=== PATIENT | female | born 1990 | race Caucasian/White ===

== ENCOUNTER 2019-07-28 20:00 | Emergency (ER) | payer SELFPAY ==
[2019-07-28] MEDS ORDERED: Ondansetron 4 MG Tab.DIS PO ONE (21:48)
--- NOTE | 2019-07-28 21:49 | EDM.PDOC ---
ED HPI GENERAL MEDICAL PROBLEM - General Chief Complaint: CLERICAL COORDINATOR Problem Stated Complaint: VOMITING Time Seen by Provider: 07/28/19 21:05 Source of Information: Reports: Patient, Other (Friend, daughter) History Limitations: Reports: No Limitations - History of Present Illness INITIAL COMMENTS - FREE TEXT/NARRATIVE: Ms. Rob is a pleasant 29-year-old woman with no significant past medical history, who states that she developed nausea and vomiting last week, as well as urinary frequency, although no dysuria. She took a home test today , and it was positive. She has not had any vaginal bleeding or pelvic cramps. She is concerned that she might have a UTI, and despite the positive home test, she would like us to recheck it, as she is not sure. LMP first week of June. This would be her 5th . Para 4. The patient does not have a PCP or Umbrella Cutter. 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 ED EXAM - Physical Exam Exam: See Below Exam Limited By: No Limitations General Appearance: Alert, WD/WN, No Apparent Distress Eye Exam: Bilateral Eye: EOMI, Normal Inspection Ears: Normal External Exam, Hearing Grossly Normal Nose: Normal Inspection Throat/Mouth: Normal Inspection, Normal Lips, Normal Voice, No Airway Compromise Head: Atraumatic, Normocephalic Neck: Normal Inspection, Full Range of Motion Respiratory/Chest: No Respiratory Distress, Lungs Clear, Normal Breath Sounds, No Accessory Muscle Use Cardiovascular: Normal Peripheral Pulses, Regular Rate, Rhythm, No Gallop, No JVD, No Murmur, No Rub GI/Abdominal Exam: Normal Bowel Sounds, Soft, Non-Tender (including suprapubically), No Organomegaly, No Distention, No Abnormal Bruit, No Mass Rectal Exam: Deferred Back Exam: Normal Inspection, Full Range of Motion. No: CVA Tenderness (L), CVA Tenderness (R) Extremities: Normal Inspection, Normal Range of Motion, No Pedal Edema, Normal Capillary Refill Neurological: Alert, Oriented, Normal Cognition, No Motor/Sensory Deficits Psychiatric: Normal Affect Skin Exam: Warm, Dry, Intact, Normal Color, No Rash Course - Vital Signs Last Recorded V/S: Last Vital Signs Temp 36.9 C 07/28/19 20:15 Pulse 88 07/28/19 20:15 Resp 18 07/28/19 20:15 BP 124/88 07/28/19 20:15 Pulse Ox 100 07/28/19 20:15 - Orders/Labs/Meds Orders: Active Orders 24 hr Category Date Time Status CULTURE URINE [RM] Stat Lab 07/28/19 21:50 Received Labs: Laboratory Tests 07/28/19 07/28/19 Range/Units 21:50 21:50 Urine Color Light yellow (Yellow) Urine Appearance Clear (Clear) Urine pH 6.5 (5.0-8.0) Ur Specific [place] > or = 1.030 (1.005-1.030) Urine Protein Negative (Negative) Urine Glucose (UA) Negative (Negative) Urine Ketones Negative (Negative) Urine Occult Blood Negative (Negative) Urine Nitrite Negative (Negative) Urine Bilirubin Negative (Negative) Urine Urobilinogen 0.2 (0.2-1.0) Ur Leukocyte Esterase Trace H (Negative) Urine RBC 5-10 H (0-5) /hpf Urine WBC 20-30 H (0-5) /hpf Ur Squamous Epith Cells 0-5 (0-5) /hpf Urine Bacteria Few (FEW) /hpf Urine Mucus Moderate H (FEW) /hpf Urine HCG, Qual Positive (NEGATIVE) Meds: Medications Discontinued Medications Generic Name Dose Route Start Last Admin Trade Name Freq PRN Reason Stop Dose Admin Nitrofurantoin Macrocrystals 100 mg 07/28/19 22:47 07/28/19 23:13 Macrobid PO 07/28/19 22:48 100 mg ONETIME STA Administration Ondansetron HCl 4 mg 07/28/19 21:48 07/28/19 21:51 Zofran Odt PO 07/28/19 21:49 4 mg ONETIME ONE Administration Prenat Multivit/[place]/Iron/Folic Ac 1 each 07/28/19 23:01 07/28/19 23:13 Plus Iron PO 07/28/19 23:02 Not Given ONETIME STA - Re-Assessments/Exams Free Text/Narrative Re-Assessment/Exam: 07/28/19 21:48 As per the HPI, the patient had a positive urine test earlier today, but she would like us to repeat it. In addition, she has been experiencing urinary frequency, although no dysuria. I have therefore ordered a urinalysis by clean catch and a repeat urine test. I also ordered some Zofran, with the intention of prescribing some more. I do not see the need for blood work or an ultrasound at this time. 07/28/19 22:46 The patient's urinalysis is remarkable for negative occult blood with 5-10 RBCs , trace leukocyte esterase with 20-30 WBCs, nitrite negative with few bacteria, and 0-5 squamous epithelial cells. This urinalysis is consistent with a UTI. I have ordered a urine culture, and will start the patient on nitrofurantoin. The patient's urine test is positive. 07/28/19 22:55 Test results discussed with the patient, her friend, and daughter. As above, we will start the patient on nitrofurantoin, and I will prescribe a five-day course , along with vitamins with folic acid, and Zofran. I will refer the patient to Dr. Stevenson for obstetric follow-up. I would like the patient to follow-up in Dr. Stevenson's office in 3 days, to check on her urine culture results. Departure - Departure Time of Disposition: 22:56 Disposition: Home, Self-Care 01 Condition: Good Clinical Impression: Cystitis, - Discharge Information *PRESCRIPTION DRUG MONITORING PROGRAM REVIEWED*: Not Applicable *COPY OF PRESCRIPTION DRUG MONITORING REPORT IN PATIENT JANEL: Not Applicable Prescriptions: Nitrofurantoin Monohyd/M-Cryst [Macrobid 100 mg Capsule] 1 cap PO Q12H #10 capsule Ondansetron [Zofran ODT] 1 tab PO Q8H PRN #10 tab.dis PRN Reason: Nausea/Vomiting Vit No.124/Iron/FA [ Vitamin Tablet] 1 tab PO DAILY #30 tablet Instructions: First Trimester of , [id number], Urinary Tract Infection, Adult Referrals: Erika Stevenson MD [Physician] - Forms: ED Department Discharge Additional Instructions: You were seen in the emergency room for nausea and vomiting since last week, having to urinate often, and having a positive home test today. Workup in the ER included a urinalysis and a urine test. The urinalysis found that you have a urinary tract infection, and your urine test returned positive. You have been started on the antibiotic nitrofurantoin (Macrobid). A prescription for Macrobid, along with prescriptions for vitamins and the anti-nausea medicine Zofran, have been sent to the [facility], located in the [employer] [place]. Take one tablet of nitrofurantoin every 12 hours, starting tomorrow morning, 07/29/2019, as prescribed. Finish the entire prescription unless told otherwise by a doctor. Take one vitamin every day, as prescribed. Dissolve one tablet of Zofran on your tongue up to every 8 hours, as needed for nausea/vomiting. Stay adequately hydrated. It does not really matter what fluid you drink. Follow-up with the CLERICAL COORDINATOR Dr. Erika Stevenson on Sunday morning, 08/01/2019, to check on your urine culture results, to make sure that you are on the correct antibiotic, and to establish obstetric care. If any other problems, please do not hesitate to return to the ER. - My Orders Last 24 Hours: My Active Orders 07/28/19 21:50 CULTURE URINE [RM] Stat - Assessment/Plan Last 24 Hours: My Active Orders 07/28/19 21:50 CULTURE URINE [RM] Stat
[2019-07-28] MEDS ORDERED: Nitrofurantoin Monohydrate/Macrocrystalline 100 MG Cap PO STA (22:47)
[2019-07-28] MEDS ORDERED: Prenatal Multivitamin with Calcium/Folic Acid/Iron Tab PO STA (23:01)
== END 2019-07-28 23:16 | disposition home or self-care (01) ==
LOC: JD.ED 20:00
DX: O23.11 Infections of bladder in pregnancy, first trimester (principal); Z3A.01 Less than 8 weeks gestation of pregnancy
CPT/HCPCS: 81001; 81025; 87086; 99284; A9270

== ENCOUNTER 2020-04-06 02:41 | Inpatient (IN) | payer MEDICAID ==
[~2020-04-06 02:41] MED LIST: Bupivacaine 0.25% 10 ML SDV ONE; ePHEDrine Sulfate/0.9% NaCl/Pf 25 MG/5 ML SYRINGE IV ONE
[2020-04-06] MEDS ORDERED: Cyclobenzaprine 10 MG Tab PO ONE (02:57)
[2020-04-06] MEDS ORDERED: Ondansetron 4 MG/2 ML SDV IVPUSH PRN (04:01)
[2020-04-06] MEDS ORDERED: Nalbuphine 10 MG/ML Syringe IVPUSH PRN (04:01)
[2020-04-06] MEDS ORDERED: Sodium Chloride 0.9% 10 ML Syringe FLUSH PRN (04:01)
[2020-04-06] MEDS ORDERED: Ampicillin 2 GM in Sodium Chloride 0.9% 100 ML IV ONE (04:01)
--- NOTE | 2020-04-06 04:01 | PCM.LDHP ---
L&D History of Present Illness - General Date of Service: 04/06/20 Admit Problem/Dx: Admission Diagnosis/Problem Admission Diagnosis/Problem Source of Information: Patient History Limitations: Reports: No Limitations - History of Present Illness Introduction:: Patient is a 29 y/o at 39 6/7 wks who presents for concerns of pubic bone pain. Started this AM. No associated contractions. No bleeding or LOF. Notes good FM. 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 LMP (Approximate): Endocrine/Metabolic History: Reports: Obesity/BMI 30+ - Infectious Disease History Infectious Disease History: Reports: Other (See Below) (Syphilis) - Past Surgical History Other Surgical History Comment: No past surgical history Social & Family History - Tobacco Use Smoking Status *Q: Never Smoker - Alcohol Use Alcohol Use History: No - Recreational Drug Use Recreational Drug Use: No - Living Situation & Occupation Living situation: Reports: Single, with Family (4 kids) Occupation: Unemployed H&P Review of Systems - Review of Systems: Review Of Systems: See Below General: Reports: No Symptoms Pulmonary: Reports: No Symptoms Cardiovascular: Reports: No Symptoms Gastrointestinal: Reports: Abdominal Pain (and pubic bone pain) Genitourinary: Reports: No Symptoms Musculoskeletal: Reports: No Symptoms Psychiatric: Reports: No Symptoms Neurological: Reports: No Symptoms L&D Exam - Exam Exam: See Below - OB Specific Movement: Active Heart Tones: Present Heart Tones per Min: 140 Heart Rate (FHR) Variability: Moderate (6-25 bmp) Presentation: Vertex - Hurtado Score Hurtado Score Cervix Position: Posterior Hurtado Score Consistency: Medium Hurtado Score Effacement: 51-70% Hurtado Score Dilation: 1-2 cm Hurtado Score Infant's Station: -3 Hurtado Score Total: 4 - Exam General: Alert, Oriented, Cooperative Lungs: Clear to Auscultation, Normal Respiratory Effort Cardiovascular: Regular Rate, Regular Rhythm GI/Abdominal Exam: Soft, Non-Tender Genitourinary: Normal external exam Extremities: Normal Inspection Skin: Warm, Dry, Intact - Patient Data Result Diagrams: 04/06/20 04:25 - Problem List (1) 39 weeks gestation of SNOMED Code(s): 71151301 ICD Code: Z3A.39 - 39 WEEKS GESTATION OF Status: Acute Current Visit: Yes (2) Syphilis affecting SNOMED Code(s): 003509746 ICD Code: O98.119 - SYPHILIS COMPLICATING , UNSPECIFIED TRIMESTER Status: Acute Current Visit: Yes Qualifiers: Trimester: third trimester Qualified Code(s): O98.113 - Syphilis complicating , third trimester (3) GBS (group B Streptococcus carrier), +RV culture, currently SNOMED Code(s): 5958748638373, 238670041, 9899819124744 ICD Code: O99.820 - STREPTOCOCCUS B CARRIER STATE COMPLICATING Status: Acute Current Visit: Yes Problem List Initiated/Reviewed/Updated: Yes Orders Last 24hrs: Active Orders 24 hr Category Date Time Status Non Stress Test [RC] PER UNIT ROUTINE Care 04/06/20 02:57 Active Vital Signs [RC] PER UNIT ROUTINE Care 04/06/20 02:57 Active Resuscitation Status Routine Resus Stat 04/06/20 02:57 Ordered Assessment/Plan Comment:: Patient initial tracing with few intermittent late decelerations. As patient due tomorrow and set for IOL tomorrow and now with late decelerations decision made to keep patient for IOL today. * Labs done * Syphilis first noted 12/08 with titer of 1: 128, has been dropping and most recent was on 03/03 and titer of 1:8. Last PCN dose was 12/26/19. Peds team to be made [place] * GBS positive, will start ampicillin * Pitocin and then AROM * Pain management per patient preference * Anticipate
[2020-04-06] MEDS ORDERED: Oxytocin/Lactated Ringers 10 UNIT/1,000 ML BAG IV SCH ×2 (04:15)
--- NOTE | 2020-04-06 05:57 | PCM.SN.2 ---
- Free Text/Narrative Note: Called for assistance with IV placement. Multiple unsuccessful attempts per nursing staff. Site cleansed with chloraprep, 1% lidocaine to skin, 20 gauge IV inserted in left hand with one attempt, good blood return, flushes well, transparent dressing applied. Patient tolerated IV start well. Kathleen Keller CRNA
[2020-04-06] MEDS: Lactated Ringers 1,000 ML IV SCH ×4 (06:06→12:30)
--- NOTE | 2020-04-06 09:59 | PCM.PNLD ---
Labor Progress Note - VS & Meds Vital Signs: Last Vital Signs Temp 36.7 C 04/06/20 02:57 Pulse 108 H 04/06/20 02:57 Resp 16 04/06/20 02:57 BP 100/59 L 04/06/20 02:57 Pulse Ox 99 04/06/20 02:57 Active Medications: Current Medications Ampicillin Sodium 1 gm/ Sodium (Chloride) 100 mls @ 200 mls/hr IV Q4H MITESH Lactated Ringer's (Ringers, Lactated) 1,000 mls @ 100 mls/hr IV ASDIRECTED MITESH Last Admin: 04/06/20 08:54 Dose: 100 mls/hr Oxytocin/Lactated Ringer's (Pitocin In Lr 10 Units/1,000 Ml) 10 unit in 1,000 mls @ 500 mls/hr IV .CONTINUOUS MITESH Oxytocin/Lactated Ringer's (Pitocin In Lr 10 Units/1,000 Ml) 10 unit in 1,000 mls @ 12 mls/hr IV TITRATE MITESH; Protocol Last Titration: 04/06/20 08:45 Dose: 4 munits/min, 24 mls/hr Nalbuphine HCl (Nubain) 10 mg IVPUSH Q2H PRN PRN Reason: Pain Ondansetron HCl (Zofran) 4 mg IVPUSH Q4H PRN PRN Reason: Nausea/Vomiting Sodium Chloride (Saline Flush) 10 ml FLUSH ASDIRECTED PRN PRN Reason: Keep Vein Open Discontinued Medications Cyclobenzaprine HCl (Flexeril) 10 mg PO ONETIME ONE Stop: 04/06/20 02:58 Last Admin: 04/06/20 03:40 Dose: 10 mg Ampicillin Sodium 2 gm/ Sodium (Chloride) 100 mls @ 200 mls/hr IV ONETIME ONE Stop: 04/06/20 04:30 Last Admin: 04/06/20 06:10 Dose: 200 mls/hr - Uterine Contractions Uterine Monitoring Mode: External [place] Contraction Intensity: Mild to Moderate Uterine Resting Tone: Soft - Monitoring Monitor Mode: External Ultrasound Heart Rate (FHR) Baseline: 145 Heart Rate (FHR) Variability: Minimal (0-5 bpm) (min-mod) Accelerations: Absent Decelerations: Late, Intermittent (<50% x 20 min) Strip Review: Category II - Vaginal Exam Dilation (cm): 3 Effacement (Percent): 75 Station: -2 Cervical Position: Posterior - Labor Progress (Free Text) Labor Progress: Doing well. Pitocin at 4. Having some late decelerations. Resolved with position change. AROM done with scant amount of clear fluid. Continue present management. Patient difficult to arouse per RN. UDS done and pending
[2020-04-06] MEDS ORDERED: fentaNYL 100 MCG/2 ML SDV EPIDUR PRN (10:37)
[2020-04-06] MEDS ORDERED: diphenhydrAMINE 50 MG/ML SDV IVPUSH PRN (10:37)
[2020-04-06] MEDS ORDERED: ePHEDrine 50 MG/ML SDV IVPUSH PRN (10:37)
[2020-04-06] MEDS ORDERED: Bupivacaine/fentaNYL/NS 100 ML Bag EPIDUR PRN (10:37)
--- NOTE | 2020-04-06 10:43 | PCM.PREANE ---
Preanesthetic Assessment - Procedure Proposed Procedure: monster - Anesthesia/Transfusion/Family Hx Anesthesia History: Prior Anesthesia Without Reaction Family History of Anesthesia Reaction: No Transfusion History: No Prior Transfusion(s) - Review of Systems General: No Symptoms Pulmonary: No Symptoms Cardiovascular: No Symptoms Gastrointestinal: No Symptoms Neurological: No Symptoms Other: Reports: None - Physical Assessment Vital Signs: Last Vital Signs Temp 98.1 F 04/06/20 02:57 Pulse 108 H 04/06/20 02:57 Resp 16 04/06/20 02:57 BP 100/59 L 04/06/20 02:57 Pulse Ox 99 04/06/20 02:57 Height: 5 ft 5 in Weight: 101.151 kg ASA Class: 2 Mental Status: Alert & Oriented x3 Airway Class: Mallampati = 1 Dentition: Reports: Normal Dentition Thyro-Mental Finger Breadths: 3 Mouth Opening Finger Breadths: 3 ROM/Head Extension: Full Lungs: Clear to Auscultation, Normal Respiratory Effort Cardiovascular: Regular Rate, Regular Rhythm - Lab Values: Laboratory Last Values WBC 8.72 K/mm3 (3.98-10.04) 04/06/20 04:25 RBC 4.17 M/mm3 (3.98-5.22) 04/06/20 04:25 Hgb 8.5 gm/dl (11.2-15.7) L 04/06/20 04:25 Hct 28.4 % (34.1-44.9) L 04/06/20 04:25 MCV 68.1 fl (79.4-94.8) L 04/06/20 04:25 MCH 20.4 pg (25.6-32.2) L 04/06/20 04:25 MCHC 29.9 g/dl (32.2-35.5) L 04/06/20 04:25 RDW Std Deviation 44.7 fL (36.4-46.3) 04/06/20 04:25 Plt Count 465 K/mm3 (182-369) H 04/06/20 04:25 MPV 10.0 fl (9.4-12.3) 04/06/20 04:25 Urine Color Yellow (Yellow) 04/06/20 09:13 Urine Appearance Clear (Clear) 04/06/20 09:13 Urine pH 7.0 (5.0-8.0) 04/06/20 09:13 Ur Specific [place] 1.025 (1.005-1.030) 04/06/20 09:13 Urine Protein Negative (Negative) 04/06/20 09:13 Urine Glucose (UA) Negative (Negative) 04/06/20 09:13 Urine Ketones Trace (Negative) H 04/06/20 09:13 Urine Occult Blood Negative (Negative) 04/06/20 09:13 Urine Nitrite Negative (Negative) 04/06/20 09:13 Urine Bilirubin Negative (Negative) 04/06/20 09:13 Urine Urobilinogen 0.2 (0.2-1.0) 04/06/20 09:13 Ur Leukocyte Esterase Negative (Negative) 04/06/20 09:13 Urine Opiates Screen Negative (HKFUHS=941) 04/06/20 09:13 Ur Buprenorphine Scrn Negative (CUTOFF=10) 04/06/20 09:13 Ur Oxycodone Screen Negative (NRR0VV=327) 04/06/20 09:13 Urine Methadone Screen Negative (DYRLMS=910) 04/06/20 09:13 Ur Propoxyphene Screen Negative (JHVCEO=944) 04/06/20 09:13 Ur Barbiturates Screen Negative (FWMRXR=986) 04/06/20 09:13 Ur Tricyclics Screen Negative (VZJPKU=591) 04/06/20 09:13 Ur Phencyclidine Scrn Negative (CUTOFF=25) 04/06/20 09:13 Ur Amphetamine Screen Negative (GSMJVC=655) 04/06/20 09:13 U Methamphetamines Scrn Negative (KCKSOJ=544) 04/06/20 09:13 U Benzodiazepines Scrn Negative (FRGYIN=341) 04/06/20 09:13 U Cocaine Metab Screen Negative (KVYIKN=564) 04/06/20 09:13 U Marijuana (THC) Screen Negative (CUTOFF=50) 04/06/20 09:13 Blood Type A POSITIVE 04/06/20 04:25 Gel Antibody Screen Negative 04/06/20 04:25 - Allergies Allergies/Adverse Reactions: Allergies Allergy/AdvReac Type Severity Reaction Status Date / Time No Known Allergies Allergy Verified 03/07/20 00:15 - Blood Blood Available: No - Acknowledgements Anesthesia Type Planned: Epidural Pt an Appropriate Candidate for the Planned Anesthesia: Yes Alternatives and Risks of Anesthesia Discussed w Pt/Guardian: Yes Pt/Guardian Understands and Agrees with Anesthesia Plan: Yes PreAnesthesia Questionnaire - Past Health History Medical/Surgical History: Denies Medical/Surgical History Cardiovascular History: Reports: None Respiratory History: Reports: None Gastrointestinal History: Reports: 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: Endocrine/Metabolic History: Reports: Obesity/BMI 30+ - Infectious Disease History Infectious Disease History: Reports: Other (See Below) (Syphilis) - Past Surgical History Other Surgical History Comment: No past surgical history - SUBSTANCE USE Smoking Status *Q: Never Smoker Tobacco Use Within Last Twelve Months: No Second Hand Smoke Exposure: No Days Per Week of Alcohol Use: 0 Recreational Drug Use History: No - HOME MEDS Home Medications: Home Meds Nitrofurantoin Monohyd/M-Cryst [Macrobid 100 mg Capsule] 1 cap PO Q12H #10 capsule 07/28/19 [Rx] Ondansetron [Zofran ODT] 1 tab PO Q8H PRN #10 tab.dis 07/28/19 [Rx] Vit No.124/Iron/Folic [ Vitamin Tablet] 1 tab PO DAILY #30 tablet 07/28/19 [Rx] - CURRENT (IN HOUSE) MEDS Current Meds: Current Medications Ampicillin Sodium 1 gm/ Sodium (Chloride) 100 mls @ 200 mls/hr IV Q4H MITESH Lactated Ringer's (Ringers, Lactated) 1,000 mls @ 100 mls/hr IV ASDIRECTED MITESH Last Admin: 04/06/20 08:54 Dose: 100 mls/hr Oxytocin/Lactated Ringer's (Pitocin In Lr 10 Units/1,000 Ml) 10 unit in 1,000 mls @ 500 mls/hr IV .CONTINUOUS MITESH Oxytocin/Lactated Ringer's (Pitocin In Lr 10 Units/1,000 Ml) 10 unit in 1,000 mls @ 12 mls/hr IV TITRATE MITESH; Protocol Last Titration: 04/06/20 08:45 Dose: 4 munits/min, 24 mls/hr Nalbuphine HCl (Nubain) 10 mg IVPUSH Q2H PRN PRN Reason: Pain Ondansetron HCl (Zofran) 4 mg IVPUSH Q4H PRN PRN Reason: Nausea/Vomiting Sodium Chloride (Saline Flush) 10 ml FLUSH ASDIRECTED PRN PRN Reason: Keep Vein Open Discontinued Medications Cyclobenzaprine HCl (Flexeril) 10 mg PO ONETIME ONE Stop: 04/06/20 02:58 Last Admin: 04/06/20 03:40 Dose: 10 mg Ampicillin Sodium 2 gm/ Sodium (Chloride) 100 mls @ 200 mls/hr IV ONETIME ONE Stop: 04/06/20 04:30 Last Admin: 04/06/20 06:10 Dose: 200 mls/hr
[2020-04-06] MEDS: Ampicillin 1 GM in Sodium Chloride 0.9% 100 ML IV SCH (11:00)
--- NOTE | 2020-04-06 11:33 | PCM.PNLD ---
Labor Progress Note - VS & Meds Vital Signs: Last Vital Signs Temp 36.7 C 04/06/20 02:57 Pulse 108 H 04/06/20 02:57 Resp 16 04/06/20 02:57 BP 100/59 L 04/06/20 02:57 Pulse Ox 99 04/06/20 02:57 Active Medications: Current Medications Diphenhydramine HCl (Benadryl) 25 mg IVPUSH Q6H PRN PRN Reason: pruritis Ephedrine Sulfate (Ephedrine Sulfate) 5 mg IVPUSH ASDIRECTED PRN PRN Reason: Hypotension Fentanyl (Sublimaze) 100 mcg EPIDUR Q3H PRN PRN Reason: Pain Last Admin: 04/06/20 11:27 Dose: 100 mcg Fentanyl/Bupivacaine HCl (Fentanyl/Bupivacaine/Ns 2 Mcg-0.125% 100 Ml) 100 ml EPIDUR ASDIRECTED PRN PRN Reason: Pain Ampicillin Sodium 1 gm/ Sodium (Chloride) 100 mls @ 200 mls/hr IV Q4H MITESH Last Admin: 04/06/20 11:00 Dose: 200 mls/hr Lactated Ringer's (Ringers, Lactated) 1,000 mls @ 100 mls/hr IV ASDIRECTED MITESH Last Admin: 04/06/20 08:54 Dose: 100 mls/hr Oxytocin/Lactated Ringer's (Pitocin In Lr 10 Units/1,000 Ml) 10 unit in 1,000 mls @ 500 mls/hr IV .CONTINUOUS MITESH Oxytocin/Lactated Ringer's (Pitocin In Lr 10 Units/1,000 Ml) 10 unit in 1,000 mls @ 12 mls/hr IV TITRATE MITESH; Protocol Last Titration: 04/06/20 08:45 Dose: 4 munits/min, 24 mls/hr Nalbuphine HCl (Nubain) 10 mg IVPUSH Q2H PRN PRN Reason: Pain Ondansetron HCl (Zofran) 4 mg IVPUSH Q4H PRN PRN Reason: Nausea/Vomiting Sodium Chloride (Saline Flush) 10 ml FLUSH ASDIRECTED PRN PRN Reason: Keep Vein Open Discontinued Medications Cyclobenzaprine HCl (Flexeril) 10 mg PO ONETIME ONE Stop: 04/06/20 02:58 Last Admin: 04/06/20 03:40 Dose: 10 mg Ampicillin Sodium 2 gm/ Sodium (Chloride) 100 mls @ 200 mls/hr IV ONETIME ONE Stop: 04/06/20 04:30 Last Admin: 04/06/20 06:10 Dose: 200 mls/hr - Uterine Contractions Uterine Monitoring Mode: External [place] Contraction Intensity: Mild to Moderate Uterine Resting Tone: Soft - Monitoring Monitor Mode: External Ultrasound Heart Rate (FHR) Baseline: 145 Heart Rate (FHR) Variability: Minimal (0-5 bpm) (min-mod) Accelerations: Absent Decelerations: None Strip Review: Category II - Vaginal Exam Dilation (cm): 3-4 Effacement (Percent): 75 Station: -2 Cervical Position: Midposition - Labor Progress (Free Text) Labor Progress: Patient just completed epidural. IUPC and FSE placed. Has periods of minimal variability and then moderate variability. Tracing similar since admission. Will continue to work towards vaginal delivery, but patient made aware of findings on tracing that might warrant additional interventions like section
--- NOTE | 2020-04-06 12:15 | PCM.SN.2 ---
- Free Text/Narrative Note: 1215 Patient now with low BP's of 70/30's and 80/40's. Variability less now. Will treat with ephedrine and have anesthesia come assess. Continue to monitor baby closely Frances Cox MD
--- NOTE | 2020-04-06 14:11 | PCM.DEL ---
L & D Note - General Info Date of Service: 04/06/20 - Delivery Note Labor: Induced by ARM, Induced by Oxytocin Delivery Outcome: Livebirth Infant Delivery Method: Spontaneous Vaginal Delivery-Single Delivery Mode: Spontaneous Presentation: Left Occiput Anterior (DAYSI) Nuchal Cord: None Anesthesia Type: Epidural Amniotic Fluid Description: Meconium Stained Episiotomy Type: None Laceration: None Placenta: Intact, Spontaneous Cord: 3 Vessels Estimated Blood Loss: 100 Resuscitation Needed: Yes Yolyn: Bulb Syringe, Stimulated, Warmed, [place] Used, Warmer Used Delivery Comments (Free Text/Narrative):: Patient found to be complete and began pushing. With maternal pushing effort head delivered from an DAYSI presentation. No nuchal cord present. With gentle downward traction shoulders and body delivered. Infant placed on maternal abdomen. Cord clamped and cut. Cord blood obtained . Placenta allowed time to separate and expelled intact - General Info Date of Service: 04/06/20 - Patient Data Vitals - Most Recent: Last Vital Signs Temp 36.7 C 04/06/20 02:57 Pulse 108 H 04/06/20 02:57 Resp 16 04/06/20 02:57 BP 100/59 L 04/06/20 02:57 Pulse Ox 99 04/06/20 02:57 Weight - Most Recent: 101.151 kg I&O - Last 24 Hours: Intake & Output 04/05/20 04/06/20 04/06/20 22:59 06:59 14:59 Intake Total 3220 Balance 3220 Lab Results Last 24 Hours: Laboratory Results - last 24 hr 04/06/20 04/06/20 04/06/20 Range/Units 04:25 04:25 09:13 WBC 8.72 (3.98-10.04) K/mm3 RBC 4.17 (3.98-5.22) M/mm3 Hgb 8.5 L (11.2-15.7) gm/dl Hct 28.4 L (34.1-44.9) % MCV 68.1 L (79.4-94.8) fl MCH 20.4 L (25.6-32.2) pg MCHC 29.9 L (32.2-35.5) g/dl RDW Std Deviation 44.7 (36.4-46.3) fL Plt Count 465 H (182-369) K/mm3 MPV 10.0 (9.4-12.3) fl Urine Color Yellow (Yellow) Urine Appearance Clear (Clear) Urine pH 7.0 (5.0-8.0) Ur Specific [place] 1.025 (1.005-1.030) Urine Protein Negative (Negative) Urine Glucose (UA) Negative (Negative) Urine Ketones Trace H (Negative) Urine Occult Blood Negative (Negative) Urine Nitrite Negative (Negative) Urine Bilirubin Negative (Negative) Urine Urobilinogen 0.2 (0.2-1.0) Ur Leukocyte Esterase Negative (Negative) Urine Opiates Screen (IWUFUI=131) Ur Buprenorphine Scrn (CUTOFF=10) Ur Oxycodone Screen (ONW5FG=397) Urine Methadone Screen (ECTNRG=487) Ur Propoxyphene Screen (VSRQLK=268) Ur Barbiturates Screen (QUGPSQ=679) Ur Tricyclics Screen (VEUSEO=146) Ur Phencyclidine Scrn (CUTOFF=25) Ur Amphetamine Screen (NMBZSR=499) U Methamphetamines Scrn (TBUBNO=598) U Benzodiazepines Scrn (ZUCLRF=145) U Cocaine Metab Screen (DDOPSW=908) U Marijuana (THC) Screen (CUTOFF=50) Blood Type A POSITIVE Gel Antibody Screen Negative 04/06/20 Range/Units 09:13 WBC (3.98-10.04) K/mm3 RBC (3.98-5.22) M/mm3 Hgb (11.2-15.7) gm/dl Hct (34.1-44.9) % MCV (79.4-94.8) fl MCH (25.6-32.2) pg MCHC (32.2-35.5) g/dl RDW Std Deviation (36.4-46.3) fL Plt Count (182-369) K/mm3 MPV (9.4-12.3) fl Urine Color (Yellow) Urine Appearance (Clear) Urine pH (5.0-8.0) Ur Specific [place] (1.005-1.030) Urine Protein (Negative) Urine Glucose (UA) (Negative) Urine Ketones (Negative) Urine Occult Blood (Negative) Urine Nitrite (Negative) Urine Bilirubin (Negative) Urine Urobilinogen (0.2-1.0) Ur Leukocyte Esterase (Negative) Urine Opiates Screen Negative (OEEPVV=569) Ur Buprenorphine Scrn Negative (CUTOFF=10) Ur Oxycodone Screen Negative (MNX4PC=804) Urine Methadone Screen Negative (IUDWRJ=430) Ur Propoxyphene Screen Negative (AYQHCE=631) Ur Barbiturates Screen Negative (XAAAWA=541) Ur Tricyclics Screen Negative (ULEWGD=956) Ur Phencyclidine Scrn Negative (CUTOFF=25) Ur Amphetamine Screen Negative (EMYOAA=545) U Methamphetamines Scrn Negative (JVGMYH=230) U Benzodiazepines Scrn Negative (VHXIDG=655) U Cocaine Metab Screen Negative (UYEDDS=879) U Marijuana (THC) Screen Negative (CUTOFF=50) Blood Type Gel Antibody Screen Med Orders - Current: Current Medications Diphenhydramine HCl (Benadryl) 25 mg IVPUSH Q6H PRN PRN Reason: pruritis Ephedrine Sulfate (Ephedrine Sulfate) 5 mg IVPUSH ASDIRECTED PRN PRN Reason: Hypotension Fentanyl (Sublimaze) 100 mcg EPIDUR Q3H PRN PRN Reason: Pain Last Admin: 04/06/20 11:27 Dose: 100 mcg Fentanyl/Bupivacaine HCl (Fentanyl/Bupivacaine/Ns 2 Mcg-0.125% 100 Ml) 100 ml EPIDUR ASDIRECTED PRN PRN Reason: Pain Ampicillin Sodium 1 gm/ Sodium (Chloride) 100 mls @ 200 mls/hr IV Q4H MITESH Last Admin: 04/06/20 11:00 Dose: 200 mls/hr Lactated Ringer's (Ringers, Lactated) 1,000 mls @ 100 mls/hr IV ASDIRECTED MITESH Last Admin: 04/06/20 12:30 Dose: 100 mls/hr Oxytocin/Lactated Ringer's (Pitocin In Lr 10 Units/1,000 Ml) 10 unit in 1,000 mls @ 500 mls/hr IV .CONTINUOUS MITESH Oxytocin/Lactated Ringer's (Pitocin In Lr 10 Units/1,000 Ml) 10 unit in 1,000 mls @ 12 mls/hr IV TITRATE MITESH; Protocol Last Titration: 04/06/20 11:45 Dose: 6 munits/min, 36 mls/hr Nalbuphine HCl (Nubain) 10 mg IVPUSH Q2H PRN PRN Reason: Pain Ondansetron HCl (Zofran) 4 mg IVPUSH Q4H PRN PRN Reason: Nausea/Vomiting Sodium Chloride (Saline Flush) 10 ml FLUSH ASDIRECTED PRN PRN Reason: Keep Vein Open Discontinued Medications Cyclobenzaprine HCl (Flexeril) 10 mg PO ONETIME ONE Stop: 04/06/20 02:58 Last Admin: 04/06/20 03:40 Dose: 10 mg Ampicillin Sodium 2 gm/ Sodium (Chloride) 100 mls @ 200 mls/hr IV ONETIME ONE Stop: 04/06/20 04:30 Last Admin: 04/06/20 06:10 Dose: 200 mls/hr - Problem List & Annotations (1) 39 weeks gestation of SNOMED Code(s): 61667581 Code(s): Z3A.39 - 39 WEEKS GESTATION OF Status: Acute Current Visit: Yes (2) Syphilis affecting SNOMED Code(s): 263302128 Code(s): O98.119 - SYPHILIS COMPLICATING , UNSPECIFIED TRIMESTER Status: Acute Current Visit: Yes Qualifiers: Trimester: third trimester Qualified Code(s): O98.113 - Syphilis complicating , third trimester (3) GBS (group B Streptococcus carrier), +RV culture, currently SNOMED Code(s): 1083397009316, 198937592, 1975428814103 Code(s): O99.820 - STREPTOCOCCUS B CARRIER STATE COMPLICATING Status: Acute Current Visit: Yes - Problem List Review Problem List Initiated/Reviewed/Updated: Yes - My Orders Last 24 Hours: My Active Orders 04/06/20 02:57 Vital Signs [RC] PER UNIT ROUTINE Resuscitation Status Routine 04/06/20 04:01 Patient Status [ADT] Routine Activity as Tolerated [RC] PFP Communication Order [RC] ASDIRECTED Notify Provider [RC] PRN Peripheral IV Care [RC] Q2HR Vital Signs [RC] PER UNIT ROUTINE Nalbuphine [Nubain] 10 mg IVPUSH Q2H PRN Ondansetron [Zofran] 4 mg IVPUSH Q4H PRN Sodium Chloride 0.9% [Saline Flush] 10 ml FLUSH ASDIRECTED PRN Electronic Heart Tones Ext w TOCO [WOMSER] Routine Electronic Heart Tones Internal [WOMSER] Per Unit Routine Peripheral IV Insertion Adult [OM.PC] Routine 04/06/20 04:15 Lactated Ringers [Ringers, Lactated] 1,000 ml IV ASDIRECTED Oxytocin/Lactated Ringers [Pitocin in LR 10 Units/1,000 ML] 10 unit in 1,000 ml IV .CONTINUOUS Oxytocin/Lactated Ringers [Pitocin in LR 10 Units/1,000 ML] 10 unit in 1,000 ml IV TITRATE 04/06/20 04:25 RAPID PLASMA REAGIN,RPR [CHEM] Routine 04/06/20 08:00 Ampicillin 1 gm Sodium Chloride 0.9% [Normal Saline] 100 ml IV Q4H 04/06/20 Breakfast Regular Diet [DIET] - Assessment Assessment:: PPD#0 - Plan Plan:: * Routine cares * Bottle feeding * Discharge home in 1-2 days
[2020-04-06] MEDS ORDERED: Benzocaine/Menthol 20%-0.5% Spray 56 GM Canister TOP PRN (15:08)
[2020-04-06] MEDS ORDERED: Docusate Sodium 100 MG Cap PO PRN (15:08)
[2020-04-06] MEDS ORDERED: Witch Hazel Medicated Pads 40/Jar TOP PRN (15:08)
[2020-04-06] MEDS ORDERED: Acetaminophen 325 MG Tab PO PRN (15:08)
[2020-04-06] MEDS: Ibuprofen 600 MG Tab PO PRN (19:55)
[2020-04-07] MEDS: Ibuprofen 600 MG Tab PO PRN ×2 (06:23→16:30)
[2020-04-07] MEDS: Ampicillin 1 GM in Sodium Chloride 0.9% 100 ML IV SCH (06:49)
--- NOTE | 2020-04-07 07:05 | PCM.PNPP ---
- General Info Date of Service: 04/07/20 Functional Status: Reports: Pain Controlled, Tolerating Diet, Ambulating, Urinating - Review of Systems General: Reports: No Symptoms Pulmonary: Reports: No Symptoms Cardiovascular: Reports: No Symptoms Gastrointestinal: Reports: Abdominal Pain (cramping) Genitourinary: Reports: No Symptoms Musculoskeletal: Reports: No Symptoms Neurological: Reports: No Symptoms - Patient Data Vital Signs - Most Recent: Last Vital Signs Temp 37.2 C 04/06/20 16:03 Pulse 88 04/06/20 16:03 Resp 18 04/06/20 15:10 BP 123/72 04/06/20 16:03 Pulse Ox 100 04/06/20 15:10 Weight - Most Recent: 101.151 kg I&O - Last 24 Hours: Intake & Output 04/06/20 04/07/20 04/07/20 22:59 06:59 14:59 Intake Total 1220 Balance 1220 Lab Results - Last 24 Hours: Laboratory Results - last 24 hr 04/06/20 04/06/20 04/06/20 Range/Units 04:25 04:25 09:13 Urine Color Yellow (Yellow) Urine Appearance Clear (Clear) Urine pH 7.0 (5.0-8.0) Ur Specific [place] 1.025 (1.005-1.030) Urine Protein Negative (Negative) Urine Glucose (UA) Negative (Negative) Urine Ketones Trace H (Negative) Urine Occult Blood Negative (Negative) Urine Nitrite Negative (Negative) Urine Bilirubin Negative (Negative) Urine Urobilinogen 0.2 (0.2-1.0) Ur Leukocyte Esterase Negative (Negative) Urine Opiates Screen (XSHNOP=925) Ur Buprenorphine Scrn (CUTOFF=10) Ur Oxycodone Screen (JCF4ZE=609) Urine Methadone Screen (ILLJDX=175) Ur Propoxyphene Screen (PPKQGS=148) Ur Barbiturates Screen (VIDTDJ=401) Ur Tricyclics Screen (BLSCQN=634) Ur Phencyclidine Scrn (CUTOFF=25) Ur Amphetamine Screen (JNMISY=907) U Methamphetamines Scrn (EADMFP=568) U Benzodiazepines Scrn (JPISZY=539) U Cocaine Metab Screen (JQIBWH=451) U Marijuana (THC) Screen (CUTOFF=50) RPR Titer 1:2 (1:2) RPR Reactive H (NONREACTIVE) 04/06/20 Range/Units 09:13 Urine Color (Yellow) Urine Appearance (Clear) Urine pH (5.0-8.0) Ur Specific [place] (1.005-1.030) Urine Protein (Negative) Urine Glucose (UA) (Negative) Urine Ketones (Negative) Urine Occult Blood (Negative) Urine Nitrite (Negative) Urine Bilirubin (Negative) Urine Urobilinogen (0.2-1.0) Ur Leukocyte Esterase (Negative) Urine Opiates Screen Negative (PRONGQ=485) Ur Buprenorphine Scrn Negative (CUTOFF=10) Ur Oxycodone Screen Negative (OXJ3XB=143) Urine Methadone Screen Negative (NCLZNM=345) Ur Propoxyphene Screen Negative (AATCOO=756) Ur Barbiturates Screen Negative (PDNAKQ=076) Ur Tricyclics Screen Negative (YAYTAX=624) Ur Phencyclidine Scrn Negative (CUTOFF=25) Ur Amphetamine Screen Negative (UIQDDW=975) U Methamphetamines Scrn Negative (AHNIML=443) U Benzodiazepines Scrn Negative (JJKJMC=371) U Cocaine Metab Screen Negative (XFZKJJ=007) U Marijuana (THC) Screen Negative (CUTOFF=50) RPR Titer (1:2) RPR (NONREACTIVE) Med Orders - Current: Current Medications Acetaminophen (Tylenol) 650 mg PO Q4H PRN PRN Reason: mild pain or fever Benzocaine/Menthol (Dermoplast Pain Relief [place]) 0 gm TOP ASDIRECTED PRN PRN Reason: Perineal Comfort Measure Docusate Sodium (Colace) 100 mg PO BID PRN PRN Reason: Constipation Ibuprofen (Motrin) 600 mg PO Q6H PRN PRN Reason: Mild pain or fever Last Admin: 04/07/20 06:23 Dose: 600 mg Witch [place] (Tucks) 1 pad TOP ASDIRECTED PRN PRN Reason: Perineal Comfort Measure Discontinued Medications Cyclobenzaprine HCl (Flexeril) 10 mg PO ONETIME ONE Stop: 04/06/20 02:58 Last Admin: 04/06/20 03:40 Dose: 10 mg Diphenhydramine HCl (Benadryl) 25 mg IVPUSH Q6H PRN PRN Reason: pruritis Ephedrine Sulfate (Ephedrine Sulfate) 5 mg IVPUSH ASDIRECTED PRN PRN Reason: Hypotension Fentanyl (Sublimaze) 100 mcg EPIDUR Q3H PRN PRN Reason: Pain Last Admin: 04/06/20 11:27 Dose: 100 mcg Fentanyl/Bupivacaine HCl (Fentanyl/Bupivacaine/Ns 2 Mcg-0.125% 100 Ml) 100 ml EPIDUR ASDIRECTED PRN PRN Reason: Pain Ampicillin Sodium 2 gm/ Sodium (Chloride) 100 mls @ 200 mls/hr IV ONETIME ONE Stop: 04/06/20 04:30 Last Admin: 04/06/20 06:10 Dose: 200 mls/hr Ampicillin Sodium 1 gm/ Sodium (Chloride) 100 mls @ 200 mls/hr IV Q4H MITESH Last Admin: 04/07/20 06:49 Dose: Not Given Lactated Ringer's (Ringers, Lactated) 1,000 mls @ 100 mls/hr IV ASDIRECTED MITESH Last Admin: 04/06/20 12:30 Dose: 100 mls/hr Oxytocin/Lactated Ringer's (Pitocin In Lr 10 Units/1,000 Ml) 10 unit in 1,000 mls @ 500 mls/hr IV .CONTINUOUS MITESH Last Admin: 04/06/20 13:59 Dose: 500 mls/hr Oxytocin/Lactated Ringer's (Pitocin In Lr 10 Units/1,000 Ml) 10 unit in 1,000 mls @ 12 mls/hr IV TITRATE MITESH; Protocol Last Titration: 04/06/20 11:45 Dose: 6 munits/min, 36 mls/hr Nalbuphine HCl (Nubain) 10 mg IVPUSH Q2H PRN PRN Reason: Pain Ondansetron HCl (Zofran) 4 mg IVPUSH Q4H PRN PRN Reason: Nausea/Vomiting Sodium Chloride (Saline Flush) 10 ml FLUSH ASDIRECTED PRN PRN Reason: Keep Vein Open - Interaction Disposition, : in Room with Family Interaction: Holding Infant Feeding: Bottle Fed Support Person: - Recovery Exam Fundal Tone: Firm Fundal Level: At Umbilicus Fundal Placement: Midline Lochia Amount: None Lochia Color: Rubra/Red Perineum Description: Intact, Minimal Bruising/Swelling Episiotomy/Laceration: None Urinary Elimination: Voided - Exam General: Alert, Oriented, Cooperative GI/Abdominal Exam: Soft, Non-Tender Extremities: Normal Inspection Skin: Warm, Dry, Intact - Problem List & Annotations (1) 39 weeks gestation of SNOMED Code(s): 32312423 Code(s): Z3A.39 - 39 WEEKS GESTATION OF Status: Acute Current Visit: Yes (2) Syphilis affecting SNOMED Code(s): 229279864 Code(s): O98.119 - SYPHILIS COMPLICATING , UNSPECIFIED TRIMESTER Status: Acute Current Visit: Yes Qualifiers: Trimester: third trimester Qualified Code(s): O98.113 - Syphilis complicating , third trimester (3) GBS (group B Streptococcus carrier), +RV culture, currently SNOMED Code(s): 8894965390519, 441892789, 2067645277948 Code(s): O99.820 - STREPTOCOCCUS B CARRIER STATE COMPLICATING Status: Acute Current Visit: Yes (4) Vaginal delivery SNOMED Code(s): 702447083 Code(s): O80 - ENCOUNTER FOR FULL-TERM UNCOMPLICATED DELIVERY Status: Acute Current Visit: Yes - Problem List Review Problem List Initiated/Reviewed/Updated: Yes - My Orders Last 24 Hours: My Active Orders 04/06/20 15:08 Activity as Tolerated [RC] PER UNIT ROUTINE Vital Signs [RC] ASDIRECTED Acetaminophen [Tylenol] 650 mg PO Q4H PRN Benzocaine/Menthol [Dermoplast Pain Relief [place]] See Dose Instructions TOP ASDIRECTED PRN Docusate Sodium [Colace] 100 mg PO BID PRN Ibuprofen [Motrin] 600 mg PO Q6H PRN witch Hunter [Tucks] 1 pad TOP ASDIRECTED PRN Assess Lochia [WOMSER] Per Unit Routine Assess Uterine Involution [WOMSER] Per Unit Routine Breast Pump [WOMSER] Per Unit Routine Heat Therapy [OM.PC] PRN Ice Therapy [OM.PC] Per Unit Routine Perineal Care [OM.PC] Per Unit Routine Peripheral IV Discontinue [OM.PC] Routine Sitz Bath [OM.PC] Per Unit Routine 04/06/20 17:21 CM Social Work Follow Up [CM] Stat 04/06/20 Dinner Regular Diet [DIET] 04/07/20 06:44 Consult to Case Management/Transfer Station Attendant [CONS] Routine 04/07/20 15:08 Heat Therapy [OM.PC] PRN - Assessment Assessment:: PPD#1 - Plan Plan:: * Routine cares * Bottle feeding * Discharge home today vs tomorrow depending upon Dye Room Helper preference
--- NOTE | 2020-04-07 08:31 | PCM48HPAN ---
Post Anesthesia Note - EVALUATION WITHIN 48HRS OF ANESTHETIC Vital Signs in Normal Range: Yes Patient Participated in Evaluation: Yes Respiratory Function Stable: Yes Airway Patent: Yes Cardiovascular Function Stable: Yes Hydration Status Stable: Yes Pain Control Satisfactory: Yes Nausea and Vomiting Control Satisfactory: Yes Mental Status Recovered: Yes Vital Signs: Last Vital Signs Temp 36.6 C 04/07/20 03:12 Pulse 81 04/07/20 03:12 Resp 16 04/07/20 03:12 BP 104/60 04/07/20 03:12 Pulse Ox 98 04/07/20 03:12
[2020-04-08] MEDS: Ibuprofen 600 MG Tab PO PRN ×2 (00:27→07:41)
--- NOTE | 2020-04-08 05:37 | PCM.PNPP ---
- General Info Date of Service: 04/08/20 Functional Status: Reports: Pain Controlled, Tolerating Diet, Ambulating, Urinating - Review of Systems General: Reports: No Symptoms Pulmonary: Reports: No Symptoms Cardiovascular: Reports: No Symptoms Gastrointestinal: Reports: No Symptoms Genitourinary: Reports: No Symptoms Musculoskeletal: Reports: No Symptoms Neurological: Reports: No Symptoms - Patient Data Vital Signs - Most Recent: Last Vital Signs Temp 37.0 C 04/08/20 03:04 Pulse 65 04/08/20 03:04 Resp 16 04/08/20 03:04 BP 106/76 04/08/20 03:04 Pulse Ox 98 04/08/20 03:04 Weight - Most Recent: 101.151 kg I&O - Last 24 Hours: Intake & Output 04/07/20 04/07/20 04/08/20 14:59 22:59 06:59 Intake Total 240 240 Balance 240 240 Med Orders - Current: Current Medications Acetaminophen (Tylenol) 650 mg PO Q4H PRN PRN Reason: mild pain or fever Last Admin: 04/08/20 03:01 Dose: 650 mg Benzocaine/Menthol (Dermoplast Pain Relief [place]) 0 gm TOP ASDIRECTED PRN PRN Reason: Perineal Comfort Measure Docusate Sodium (Colace) 100 mg PO BID PRN PRN Reason: Constipation Last Admin: 04/07/20 16:30 Dose: 100 mg Ibuprofen (Motrin) 600 mg PO Q6H PRN PRN Reason: Mild pain or fever Last Admin: 04/08/20 00:27 Dose: 600 mg Witch [place] (Tucks) 1 pad TOP ASDIRECTED PRN PRN Reason: Perineal Comfort Measure Discontinued Medications Bupivacaine HCl (Sensorcaine-Mpf 0.25%) 10 ml .ROUTE .STK-MED ONE Stop: 04/06/20 00:01 Cyclobenzaprine HCl (Flexeril) 10 mg PO ONETIME ONE Stop: 04/06/20 02:58 Last Admin: 04/06/20 03:40 Dose: 10 mg Diphenhydramine HCl (Benadryl) 25 mg IVPUSH Q6H PRN PRN Reason: pruritis Ephedrine Sulfate (Ephedrine Sulfate) 5 mg IVPUSH ASDIRECTED PRN PRN Reason: Hypotension Ephedrine Sulfate (Ephedrine 25 Mg/5 Ml Syringe) 25 mg IV .STK-MED ONE Stop: 04/06/20 00:01 Fentanyl (Sublimaze) 100 mcg EPIDUR Q3H PRN PRN Reason: Pain Last Admin: 04/06/20 11:27 Dose: 100 mcg Fentanyl/Bupivacaine HCl (Fentanyl/Bupivacaine/Ns 2 Mcg-0.125% 100 Ml) 100 ml EPIDUR ASDIRECTED PRN PRN Reason: Pain Ampicillin Sodium 2 gm/ Sodium (Chloride) 100 mls @ 200 mls/hr IV ONETIME ONE Stop: 04/06/20 04:30 Last Admin: 04/06/20 06:10 Dose: 200 mls/hr Ampicillin Sodium 1 gm/ Sodium (Chloride) 100 mls @ 200 mls/hr IV Q4H MITESH Last Admin: 04/07/20 06:49 Dose: Not Given Lactated Ringer's (Ringers, Lactated) 1,000 mls @ 100 mls/hr IV ASDIRECTED MITESH Last Admin: 04/06/20 12:30 Dose: 100 mls/hr Oxytocin/Lactated Ringer's (Pitocin In Lr 10 Units/1,000 Ml) 10 unit in 1,000 mls @ 500 mls/hr IV .CONTINUOUS MITESH Last Admin: 04/06/20 13:59 Dose: 500 mls/hr Oxytocin/Lactated Ringer's (Pitocin In Lr 10 Units/1,000 Ml) 10 unit in 1,000 mls @ 12 mls/hr IV TITRATE MITESH; Protocol Last Titration: 04/06/20 11:45 Dose: 6 munits/min, 36 mls/hr Nalbuphine HCl (Nubain) 10 mg IVPUSH Q2H PRN PRN Reason: Pain Ondansetron HCl (Zofran) 4 mg IVPUSH Q4H PRN PRN Reason: Nausea/Vomiting Sodium Chloride (Saline Flush) 10 ml FLUSH ASDIRECTED PRN PRN Reason: Keep Vein Open - Interaction Infant Disposition, : [place] in Room with Family Interaction: Holding Feeding: Bottle Fed Infant Support Person: - Recovery Exam Fundal Tone: Firm Fundal Level: 1 Fingerbreadths Below Umbilicus Fundal Placement: Midline Lochia Amount: Small Lochia Color: Rubra/Red Perineum Description: Intact, Minimal Bruising/Swelling Episiotomy/Laceration: None Bladder Status: Voiding Urinary Elimination: Voided - Exam General: Alert, Oriented, Cooperative GI/Abdominal Exam: Soft, Non-Tender Extremities: Normal Inspection Skin: Warm, Dry, Intact - Problem List & Annotations (1) 39 weeks gestation of SNOMED Code(s): 58002329 Code(s): Z3A.39 - 39 WEEKS GESTATION OF Status: Acute Current Visit: Yes (2) Syphilis affecting SNOMED Code(s): 051849951 Code(s): O98.119 - SYPHILIS COMPLICATING , UNSPECIFIED TRIMESTER Status: Acute Current Visit: Yes Qualifiers: Trimester: third trimester Qualified Code(s): O98.113 - Syphilis complicating , third trimester (3) GBS (group B Streptococcus carrier), +RV culture, currently SNOMED Code(s): 3319852161595, 541177399, 8462441871283 Code(s): O99.820 - STREPTOCOCCUS B CARRIER STATE COMPLICATING Status: Acute Current Visit: Yes (4) Vaginal delivery SNOMED Code(s): 355289388 Code(s): O80 - ENCOUNTER FOR FULL-TERM UNCOMPLICATED DELIVERY Status: Acute Current Visit: Yes - Problem List Review Problem List Initiated/Reviewed/Updated: Yes - My Orders Last 24 Hours: My Active Orders 04/07/20 06:44 Consult to Case Management/Component Prep Operator [CONS] Routine 04/07/20 15:08 Heat Therapy [OM.PC] PRN 04/08/20 05:36 Ready for Discharge [RC] PER UNIT ROUTINE - Assessment Assessment:: PPD#2 - Plan Plan:: * Routine cares * Bottle feeding * Discharge home today
--- NOTE | 2020-04-08 05:37 | PCM.DCSUM1 ---
Discharge Summary - Discharge Data Discharge Date: 04/08/20 Discharge Disposition: Home, Self-Care 01 Condition: Good - Referral to Home Health Primary Care Physician: Frances Cox MD - Discharge Diagnosis/Problem(s) (1) 39 weeks gestation of SNOMED Code(s): 58255408 ICD Code: Z3A.39 - 39 WEEKS GESTATION OF Status: Acute Current Visit: Yes (2) Syphilis affecting SNOMED Code(s): 167289002 ICD Code: O98.119 - SYPHILIS COMPLICATING , UNSPECIFIED TRIMESTER Status: Acute Current Visit: Yes Qualifiers: Trimester: third trimester Qualified Code(s): O98.113 - Syphilis complicating , third trimester (3) GBS (group B Streptococcus carrier), +RV culture, currently SNOMED Code(s): 7027170363590, 334596387, 1104628395478 ICD Code: O99.820 - STREPTOCOCCUS B CARRIER STATE COMPLICATING Status: Acute Current Visit: Yes (4) Vaginal delivery SNOMED Code(s): 713846810 ICD Code: O80 - ENCOUNTER FOR FULL-TERM UNCOMPLICATED DELIVERY Status: Acute Current Visit: Yes - Patient Summary/Data Complications: None Consults: Consultations 04/07/20 06:44 Consult to Case Management/In Class Special Education Teacher [CONS] Routine Recommended Follow-up Testing/Procedures: Follow up in 3 weeks for check Hospital Course: 29 y/op at 39 6/7 wks gestation initially presented for concerns of flank and hip pain. On tracing, however there were notable times of intermittent late decelerations for this reason she was kept for induction of labor. Patient's otherwise notable for contraction of syphilis which was adequately treated. Induction done with Pitocin and rupture of membranes. Tracing with intermittent times of decelerations, but overall reassuring enough to continue towards vaginal delivery. She was able to achieve an uncomplicated vaginal delivery. See delivery note for full details. she did well was discharged home on day #2 - Patient Instructions Diet: Regular Diet as Tolerated Activity: As Tolerated Activity, Other: Pelvic rest for 6 weeks Driving: May Drive Today Showering/Bathing: May Shower Showering/Bathing, Other: May Bathe Notify Provider of: Fever, Increased Pain, Swelling and Redness, Drainage, Nausea and/or Vomiting - Discharge Plan *PRESCRIPTION DRUG MONITORING PROGRAM REVIEWED*: No *COPY OF PRESCRIPTION DRUG MONITORING REPORT IN PATIENT JANEL: No Home Medications: Home Meds Vit No.124/Iron/Folic [ Vitamin Tablet] 1 tab PO DAILY #30 tablet 07/28/19 [Rx] Acetaminophen [Tylenol] 650 mg PO Q4H PRN tablet 04/07/20 [Rx] Ibuprofen [Motrin] 600 mg PO Q6H PRN tablet 04/07/20 [Rx] Referrals: Frances Cox MD [Primary Care Provider] - (3 weeks for check ) - Discharge Summary/Plan Comment DC Time >30 min.: No - Patient Data Vitals - Most Recent: Last Vital Signs Temp 37.0 C 04/08/20 03:04 Pulse 65 04/08/20 03:04 Resp 16 04/08/20 03:04 BP 106/76 04/08/20 03:04 Pulse Ox 98 04/08/20 03:04 Weight - Most Recent: 101.151 kg I&O - Last 24 hours: Intake & Output 04/07/20 04/07/20 04/08/20 14:59 22:59 06:59 Intake Total 240 240 Balance 240 240 Med Orders - Current: Current Medications Acetaminophen (Tylenol) 650 mg PO Q4H PRN PRN Reason: mild pain or fever Last Admin: 04/08/20 03:01 Dose: 650 mg Benzocaine/Menthol (Dermoplast Pain Relief Hughes) 0 gm TOP ASDIRECTED PRN PRN Reason: Perineal Comfort Measure Docusate Sodium (Colace) 100 mg PO BID PRN PRN Reason: Constipation Last Admin: 04/07/20 16:30 Dose: 100 mg Ibuprofen (Motrin) 600 mg PO Q6H PRN PRN Reason: Mild pain or fever Last Admin: 04/08/20 00:27 Dose: 600 mg Witch [place] (Tucks) 1 pad TOP ASDIRECTED PRN PRN Reason: Perineal Comfort Measure Discontinued Medications Bupivacaine HCl (Sensorcaine-Mpf 0.25%) 10 ml .ROUTE .STK-MED ONE Stop: 04/06/20 00:01 Cyclobenzaprine HCl (Flexeril) 10 mg PO ONETIME ONE Stop: 04/06/20 02:58 Last Admin: 04/06/20 03:40 Dose: 10 mg Diphenhydramine HCl (Benadryl) 25 mg IVPUSH Q6H PRN PRN Reason: pruritis Ephedrine Sulfate (Ephedrine Sulfate) 5 mg IVPUSH ASDIRECTED PRN PRN Reason: Hypotension Ephedrine Sulfate (Ephedrine 25 Mg/5 Ml Syringe) 25 mg IV .STK-MED ONE Stop: 04/06/20 00:01 Fentanyl (Sublimaze) 100 mcg EPIDUR Q3H PRN PRN Reason: Pain Last Admin: 04/06/20 11:27 Dose: 100 mcg Fentanyl/Bupivacaine HCl (Fentanyl/Bupivacaine/Ns 2 Mcg-0.125% 100 Ml) 100 ml EPIDUR ASDIRECTED PRN PRN Reason: Pain Ampicillin Sodium 2 gm/ Sodium (Chloride) 100 mls @ 200 mls/hr IV ONETIME ONE Stop: 04/06/20 04:30 Last Admin: 04/06/20 06:10 Dose: 200 mls/hr Ampicillin Sodium 1 gm/ Sodium (Chloride) 100 mls @ 200 mls/hr IV Q4H MITESH Last Admin: 04/07/20 06:49 Dose: Not Given Lactated Ringer's (Ringers, Lactated) 1,000 mls @ 100 mls/hr IV ASDIRECTED MITESH Last Admin: 04/06/20 12:30 Dose: 100 mls/hr Oxytocin/Lactated Ringer's (Pitocin In Lr 10 Units/1,000 Ml) 10 unit in 1,000 mls @ 500 mls/hr IV .CONTINUOUS MITESH Last Admin: 04/06/20 13:59 Dose: 500 mls/hr Oxytocin/Lactated Ringer's (Pitocin In Lr 10 Units/1,000 Ml) 10 unit in 1,000 mls @ 12 mls/hr IV TITRATE MITESH; Protocol Last Titration: 04/06/20 11:45 Dose: 6 munits/min, 36 mls/hr Nalbuphine HCl (Nubain) 10 mg IVPUSH Q2H PRN PRN Reason: Pain Ondansetron HCl (Zofran) 4 mg IVPUSH Q4H PRN PRN Reason: Nausea/Vomiting Sodium Chloride (Saline Flush) 10 ml FLUSH ASDIRECTED PRN PRN Reason: Keep Vein Open
[2020-04-08 09:06] VITALS: BP 99/71; PULSE 62
== END 2020-04-08 10:04 | disposition home or self-care (01) | DRG 806 ==
LOC: JD.OBCHECK 02:41 → JD.OB 02:41 → JD.OBCHECK 04:00 → JD.OB 04:01 → OBSVTOIN 13:59 → JD.OB 14:00
PROVIDERS: ADMIT Obstetrics & Gynecology; ATTEND Obstetrics & Gynecology
PROC: 10E0XZZ Delivery of Products of Conception, External Approach (ICD-10-PCS; principal; 2020-04-06)
PROC: 10907ZC Drainage of Amniotic Fluid, Therapeutic from Products of Conception, Via Natural or Artificial Opening (ICD-10-PCS; 2020-04-06)
PROC: 3E033VJ Introduction of Other Hormone into Peripheral Vein, Percutaneous Approach (ICD-10-PCS; 2020-04-06)
PROC: 10H07YZ Insertion of Other Device into Products of Conception, Via Natural or Artificial Opening (ICD-10-PCS; 2020-04-06)
PROC: 3E0R3BZ Introduction of Anesthetic Agent into Spinal Canal, Percutaneous Approach (ICD-10-PCS; 2020-04-06)
PROC: 00HU33Z Insertion of Infusion Device into Spinal Canal, Percutaneous Approach (ICD-10-PCS; 2020-04-06)
DX: O76 Abnormality in fetal heart rate and rhythm complicating labor and delivery (principal); O98.113 Syphilis complicating pregnancy, third trimester; Z37.0 Single live birth; O99.824 Streptococcus B carrier state complicating childbirth; O77.0 Labor and delivery complicated by meconium in amniotic fluid; Z3A.39 39 weeks gestation of pregnancy
CPT/HCPCS: 01967; 36415; 51701; 51702; 51703; 59025; 59409; 80306; 81003; 85027; 86592; 86780; 86850; 86900; 86901; A9270-GY; J0171; J0290; J2590; J3010; J3490; J7050; J7120